=== PATIENT | male | born 1950 | race Caucasian/White ===

== ENCOUNTER → 2020-11-13 10:48 | Outpatient (REF) | payer MEDICARE, OTHER, SELFPAY | LOC: ANHLAB 10:48 | PROVIDERS: Visit Provider Nurse Practitioner | DX: C44.311 Basal cell carcinoma of skin of nose (principal) | CPT/HCPCS: 88305; 88331 ==

== ENCOUNTER 2022-03-05 17:29 | Emergency (ER) | payer MEDICARE, SELFPAY ==
--- NOTE | ~2022-03-05 | CT_ITS ---
EXAMINATION: CT abdomen pelvis w con DATE: 03/05/2022 20:01 INDICATION: lower abdominal pain, right lower abdomen discomfort TECHNIQUE: Computed tomography (CT) of the abdomen and pelvis was performed with 100 mL Omnipaque-350 intravenous contrast. Automated exposure control and iterative reconstruction technique were employe d. The dose-length product was 618.22 mGy-cm. COMPARISON: None FINDINGS: Lower thorax: Granulomatous calcification in the left lower lobe. Hiatal hernia. Liver: Multiple small cysts as well as multiple hypodensities due to small to characterize. Cranial t o this calcification. Biliary/Gallbladder: Gallbladder is normal. No bile duct dilation. Spleen: Normal. Pancreas: No mass or duct dilation. Adrenals:No mass. Kidneys: No mass, stone, or hydronephrosis. GI tract: No small or large bowel dilation. The distal appendix measures up to 6.5 mm in maximum diam eter. Minimal periappendiceal fat stranding. Appendicolith in the proximal appendix. Diverticulosis w ithout evidence of diverticulitis. Mesentery/Peritoneum: No ascites, mass, or free air. Retroperitoneum: No mass. Pelvis: Prostatomegaly, with calcifications. Remaining pelvic organs are within normal limits. Bones/Soft Tissues: Fat-containing left inguinal hernia. Degenerative changes. Additional Findings: None. IMPRESSION: CT findings may reflect mild and early acute appendicitis in the appropriate clinical context. Reviewed, dictated and finalized at location K. IMPRESSION: CT findings may reflect mild and early acute appendicitis in the appropriate cl inical context.
[2022-03-05 17:56] VITALS: BP 148/73; PULSE 86; RESP 16; TEMP 36.6; O2SAT 100
[2022-03-05 18:11] LABS: Basophils Absolute Auto 0.1 K/mm3 (0.0-0.1); Basophils Percent Auto 0.8 % (0.2-1.2); Eosinophils Absolute Auto 0.1 K/mm3 (0-0.3); Eosinophils Percent Auto 0.8 % (0-4.4); Hematocrit 43.9 % (42.0-52.0); Hemoglobin 14.7 g/dL (14.0-18.0); Immature Granulocyte Absolute 0.01 K/mm3 (0.00-0.031); Immature Granulocyte Percent A 0.2 % (0-0.5); Lymphocytes Absolute Auto 1.47 K/mm3 (0.9-3.2); Mean Corpuscular HGB Conc 33.5 g/dl (32-36); Mean Corpuscular Hemoglobin 31.2 pg (26-34); Mean Corpuscular Volume 93.2 fl (80-100); Mean Platelet Volume 9.1 fl (7.4-10.4); Monocytes Absolute Auto 0.5 K/mm3 (0.1-0.6); Monocytes Percent Auto 8.5 % (2.6-8.5); Neutrophils Absolute Auto 3.8 K/mm3 (1.3-6.7); Neutrophils Percent Auto 64.7 % (45.5-73.1); Platelet Count Result 240 k/mm3 (150-375); Red Blood Count 4.71 M/mm3 (4.6-6.20); Red Cell Distribution Width 12.3 % (11.5-14.5); White Blood Count 5.9 K/mm3 (4.5-10.0)
[2022-03-05 18:21] LABS: Alanine Aminotransferase 41 U/L (4-50); Albumin Level 4.5 g/dL (3.5-5.1); Alkaline Phosphatase 95 U/L (38-126); Anion Gap 7 mmol/L (8-16); Aspartate Amino Transferase 33 U/L (17-59); Bilirubin,Total 0.3 mg/dL (0.2-1.3); Blood Urea Nitrogen 20 mg/dL (9-20); Calcium 8.8 mg/dL (8.4-10.2); Carbon Dioxide 27 mmol/L (22-30); Chloride 107 mmol/L (98-107); Estimated CRCL calculation 65 ml/min; Estimated Glomerular Filt Rate > 60; Glucose 119 mg/dL (65-110); Lipase 71 U/L (23-300); Potassium 4.1 mmol/L (3.4-5.0); Sodium 141 mmol/L (137-145)
[2022-03-05 18:31] LABS: Add Urine Microscopic? YES; Appearance Urine Clear (Clear); Bilirubin Urine Negative (Negative); Blood Urine Negative (Negative); Color Urine Yellow (Yellow); Glucose Urine UA Negative (Negative); Ketones Urine Trace mg/dL (Negative); Leukocyte Esterase Ur Negative LEU/UL (Negative); Mucus Urine Rare /lpf; Nitrate Urine Negative (Negative); Protein Urine Negative (Negative); Specific Grav Ur 1.027 (1.001-1.035); Squamous Epithelial Cell Urine Rare /hpf (Few); Urobilinogen Urine Negative mg/dL (<2.0); WBC Urine 0-3 /hpf
[2022-03-05 19:21] VITALS: BP 161/93; PULSE 80; RESP 18; O2SAT 99
--- NOTE | 2022-03-05 19:27 | ED.ABDPAIN ---
HPI - Abdominal Pain General Chief Complaint: Abdominal Pain Stated Complaint: Abd pain Time Seen by Provider: 03/05/22 19:17 Source: patient Mode of arrival: ambulatory Limitations: no limitations History of Present Illness HPI narrative: This is a 72 year old male who presents for evaluation of lower abdominal pain. He has been having pain across his entire lower abdomen for 3 weeks. He states this discomfort has been constant, and he is also having right lower abdominal fluttering . He has been taking probiotics and protonix for his symptoms. He denies associated nausea, vomiting, fever, diarrhea, constipation, or urinary issues. He reports having large normal bowel movement today. He states his pain is currently 2/10. Related Data Home Medications Medication Instructions Recorded Confirmed allopurinol 100 mg tablet 100 mg PO DAILY tablet 11/13/20 atorvastatin 10 mg tablet 10 mg PO DAILY tablet 11/13/20 betamethasone dipropionate 0.05 % ml TOPICAL 11/13/20 lotion pantoprazole 40 mg tablet,delayed mg PO 11/13/20 release triamcinolone acetonide 0.1 % 1 applic TOPICAL PRN g 11/13/20 topical ointment valacyclovir 1 gram tablet mg PO PRN 11/13/20 Allergies Allergy/AdvReac Type Severity Reaction Status Date / Time oxycodone Allergy Other Verified 11/20/20 13:22 Review of Systems Review of Systems: All systems reviewed & are unremarkable except as noted in HPI and below PMFSH Past Medical History Medical History (Updated 03/06/22 @ 00:00 by Susan Kwan) History of basal cell carcinoma (BCC) of skin Surgical History Surgical History (Updated 03/05/22 @ 19:29 by Brenda Nelson MD) History of tonsillectomy Social History Social History Smoking status: Former smoker Alcohol intake: current Alcohol use details: 2-3/week Substance use: current Exam Const: General: no acute distress and alert Orientation/consciousness: patient oriented x3 Eyes: EOM: EOMs intact bilaterally Resp: Effort & Inspection: normal respiratory effort Auscultation: clear to auscultation bilaterally Cardio: Rate: regular rate Rhythm: regular rhythm Heart sounds: no murmurs GI: GI Palp: Yes Soft to palpation, No Tenderness to palpation present (GI) and No Guarding due to palpation present (GI) Auscultation: normal bowel sounds Skin: General skin exam: normal color Rashes: no rashes Neuro: General: patient oriented x3, moves all extremities and CN's II-XI intact bilaterally Psych: Mental Status: mental status grossly normal Affect: normal affect Course Reevaluation(s) Reevaluation #1: I discussed with patient Ct findings. I discussed plan to admit for IV antibiotics and assessment by surgeon tomorrow for possible early appendicits. Patient states he can not stay because no one is able to care for his dogs. I discussed with Dr. Campuzano and he states patient can be discharged on oral antibiotics . He will follow up with patient next week in clinic. He recommends patient to take his temperature and return to ER if temperature greater than 100 F. Patient will need to call office tomorrow. Patient was given return precautions. Date: 03/05/22 Time: 21:23 Consultations Consultation #1: I discussed CT and case with Dr. campuzano. He agrees to admit patient for antibiotics and reassessment tomorrow for possible early appendicitis if patient wants to stay. Date: 03/05/22 Time: 19:50 Vital Signs Vital signs: Vital Signs Temperature 97.9 F 03/05/22 17:56 Pulse Rate 86 03/05/22 17:56 Respiratory Rate 16 03/05/22 17:56 Blood Pressure 148/73 H 03/05/22 17:56 Pulse Oximetry 100 03/05/22 17:56 Temperature 97.9 F 03/05/22 17:56 Pulse Rate 80 03/05/22 20:40 Respiratory Rate 18 03/05/22 20:40 Blood Pressure 137/74 03/05/22 20:40 Pulse Oximetry 98 03/05/22 20:40 MDM - Abdominal Pain Lab Da
[2022-03-05 20:40] VITALS: BP 137/74; PULSE 80; RESP 18; O2SAT 98
[2022-03-05] MEDS: metroNIDAZOLE 250 MG TABLET 500 MG PO (21:26)
[2022-03-05] MEDS: levoFLOXacin 500 MG TABLET PO (21:43)
== END 2022-03-05 21:49 | disposition home or self-care (01) ==
PROVIDERS: Emergency Medicine; Emergency Provider General Practice; PCP Internal Medicine
DX: K37 Unspecified appendicitis (principal); Z79.899 Other long term (current) drug therapy; Z88.5 Allergy status to narcotic agent; Z85.828 Personal history of other malignant neoplasm of skin; Z90.89 Acquired absence of other organs; Z87.891 Personal history of nicotine dependence
CPT/HCPCS: 36415; 74177; 80053; 81001; 83690; 85025; 99284; A9270; Q9967

== ENCOUNTER 2022-03-12 10:47 | Outpatient (CLI) | payer MEDICARE, SELFPAY ==
--- NOTE | ~2022-03-12 | CT_ITS ---
EXAMINATION: CT abdomen pelvis w con EXAM DATE: 03/12/2022 11:36 INDICATION: R10.31 - Right lower quadrant pain. TECHNIQUE: Spiral CT of the abdomen and pelvis was performed following intravenous injection of 100 m L Omnipaque 350. Axial, coronal and sagittal images of the abdomen and pelvis were reviewed. The do se-length product (DLP) for this examination was 556.53 mGy-cm. The exposure was tailored according to patient size (auto mA exposure control), and iterative reconstruction (ASIR) was used as additiona l dose reduction technique. Comparison is made to prior examination from 03/05/2022. FINDINGS: The retrocecal appendix measures about 6 mm in diameter, has some fluid within but is other cr unremarkable. On prior study there was small amount of dense material within the appendix, simil ar to density of colonic stool. This is no longer present, no appendicolith or obstructed appendix persaud spected. There is no adjacent inflammation. There are several liver cysts. There are scattered liver subcentimeter hypodensities too small to evelyn racterize by CT but probably cysts. These appear unchanged. Spleen, adrenal glands, pancreas are unre markable. Gallbladder is unremarkable. No biliary obstruction. Portal and splenic veins are patent. Kidneys enhance symmetrically. There is no hydronephrosis. Calcifications in the pelvis are believed to be phleboliths. Prostate normal in size. Small left inguinal fat-containing hernia. The bladder is unre markable. There is no retroperitoneal or pelvic lymphadenopathy. There is mild scattered colonic diverticulosis. There is no adjacent inflammatory change to suggest diverticulitis. The stomach and small bowel are unremarkable. There is moderate amount of colonic st ool. No free intraperitoneal gas. The heart is normal in size. There are no pericardial or pleur al effusions. The lung bases are unremarkable. There is left acetabular bone island. IMPRESSION: 1. No findings to suggest appendicitis. 2. Mild colonic diverticulosis. 3. Small left inguinal fat-containing hernia. Reviewed, dictated and finalized at location B.
[2022-03-12 11:09] LABS: Basophils Absolute Auto 0.1 K/mm3 (0.0-0.1); Basophils Percent Auto 1.1 % (0.2-1.2); Eosinophils Percent Auto 0.5 % (0-4.4); Hematocrit 43.9 % (42.0-52.0); Hemoglobin 15.4 g/dL (14.0-18.0); Immature Granulocyte Absolute 0.02 K/mm3 (0.00-0.031); Immature Granulocyte Percent A 0.3 % (0-0.5); Lymphocytes Absolute Auto 1.07 K/mm3 (0.9-3.2); Lymphocytes Percent Auto 17.5 % (18.3-44.2); Mean Corpuscular HGB Conc 35.1 g/dl (32-36); Mean Corpuscular Hemoglobin 31.6 pg (26-34); Mean Corpuscular Volume 90.1 fl (80-100); Mean Platelet Volume 9.1 fl (7.4-10.4); Monocytes Absolute Auto 0.4 K/mm3 (0.1-0.6); Neutrophils Absolute Auto 4.5 K/mm3 (1.3-6.7); Neutrophils Percent Auto 73.6 % (45.5-73.1); Platelet Count Result 219 k/mm3 (150-375); Red Blood Count 4.87 M/mm3 (4.6-6.20); Red Cell Distribution Width 12.2 % (11.5-14.5); White Blood Count 6.1 K/mm3 (4.5-10.0)
== END 2022-03-12 10:48 | disposition home or self-care (01) ==
PROVIDERS: PCP Internal Medicine; Visit Provider Surgery
DX: R10.31 Right lower quadrant pain (principal); K57.30 Diverticulosis of large intestine without perforation or abscess without bleeding; K40.90 Unilateral inguinal hernia, without obstruction or gangrene, not specified as recurrent
CPT/HCPCS: 36415; 74177; 85025; Q9967